=== PATIENT | male | born 1980 | race Caucasian/White ===

== ENCOUNTER 2017-03-28 05:57 | Day surgery (SDC) | payer BC ==
[2017-03-28] MEDS ORDERED: Famotidine IV* 10 MG/ML 2 ML (20 mg) IV ONE (06:00)
[2017-03-28] MEDS ORDERED: Buffered Lidocaine 0.9% SYRIN* 5 ML/SYR SYRINGE INTRADERM ONE (06:00)
[2017-03-28] MEDS ORDERED: Famotidine IV* 10 MG/ML 2 ML (20 mg) ONE (06:07)
[2017-03-28] MEDS ORDERED: Buffered Lidocaine 0.9% SYRIN* 5 ML/SYR SYRINGE ONE (06:08)
[2017-03-28] MEDS ORDERED: ceFAZolin 2 GM PREMIX (*) 2 GM/50 ML BAG IVPB ONE (06:08)
[2017-03-28] MEDS ORDERED: Clindamycin 900 MG IVPREMIX(* 900 MG/50 ML SDV IV ONE (07:02)
[2017-03-28] MEDS ORDERED: fentaNYL* 50 MCG/ML 2 ML VIAL (100 MCG VIAL) ONE ×2 (07:26→08:17)
[2017-03-28] MEDS ORDERED: Midazolam* 1 MG/ML 2 ML VIAL (2 MG) ONE (07:26)
[2017-03-28] MEDS ORDERED: Bupivacaine 0.5% SDV PF* 30 ML VIAL ONE (07:46)
[2017-03-28] MEDS ORDERED: Lidocaine 1% MPF wEPI 200,000* 30 ML SDV ONE (07:46)
[2017-03-28] MEDS ORDERED: Propofol* 10 MG/ML 20 ML BTL IV PUSH ONE ×2 (07:48→09:41)
[2017-03-28] MEDS ORDERED: Dexamethasone IV* 4 MG/ML 1 ML (4 MG) ONE (07:48)
[2017-03-28] MEDS ORDERED: Ondansetron INJ* 2 MG/ML VIAL ONE (07:48)
[2017-03-28] MEDS ORDERED: Ketorolac INJ* 30 MG/ML 1 ML VIAL ONE (07:48)
[2017-03-28] MEDS ORDERED: DiMENhydriNATE IV* 50 MG/ML VIAL ONE (07:48)
[2017-03-28] MEDS ORDERED: Succinylcholine* 20 MG/ML 10 ML VIAL ONE (07:48)
[2017-03-28] MEDS ORDERED: Lidocaine 2% PF * 5 ML VIAL ONE (07:49)
[2017-03-28] MEDS ORDERED: EPINEPHRINE 1 MG/ML 1 ML VIAL ONE (07:57)
[2017-03-28] MEDS ORDERED: DiMENhydriNATE IV* 50 MG/ML VIAL IV PUSH PRN (08:00)
[2017-03-28] MEDS ORDERED: HYDROmorphone INJ* 1 MG/ML CARPUJECT SYRINGE ONE (09:08)
[2017-03-28] MEDS ORDERED: oxyCODONE/Acetamin 5/325 MG* TAB ONE (09:08)
[2017-03-28] MEDS: HYDROmorphone INJ* 1 MG/ML CARPUJECT SYRINGE IV PRN ×3 (09:09→09:22)
[2017-03-28] MEDS: oxyCODONE/Acetamin 5/325 MG* TAB PO PRN ×2 (09:10→09:11)
[2017-03-28 10:35] VITALS: BP 147/92
--- NOTE | 2017-03-28 16:21 | OP ---
DATE OF OPERATION: 03/28/17 [facility] DATE OF : 78 ATTENDING SURGEON: Pop Fowler MD. RESEARCH PHYSICIST: KINGA Medrano. ANESTHESIOLOGIST: Veronica Mon MD ANESTHESIA: General. PRE-OP DIAGNOSIS: Loose bodies in right elbow. POST-OP DIAGNOSIS: Loose bodies in right elbow. OPERATIVE PROCEDURE: 1. Right elbow arthroscopy. 2. Removable of loose bodies. ESTIMATED BLOOD LOSS: Negligible. COMPLICATIONS: None. SUMMARY: Mr. Ashford is a 36-year-old male who has been having troubles with his right elbow for many years now. He does not remember any particular injury , but notes that he has difficulty with locking out, bending up, and occasionally the elbow would get stuck with the elbow being quite painful. X- rays and CAT scan confirmed very specific loose bodies, but no donor site. I discussed with him that an elbow arthroscopy to remove the loose bodies and doing a microfracture technique had come from should work well to decrease his pain and improve his function. Risks of surgery such as neurovascular injury, scar formation, stiffness, and additional loose bodies were discussed and he had wished to proceed. DESCRIPTION OF PROCEDURE: The patient was brought to the OR and an LMA was placed. He was then rolled into a left lateral decubitus position. Axillary roll was placed and reardon bag was inflated. Right elbow area was prepped and then draped. Portal sites were preinjected using 0.5% Marcaine mixed with 1% lidocaine with epinephrine. Standard anterolateral portal was made first just above the radiocapitellar joint. Skin was just incised and joint was then filled with approximately 15 cc of normal saline. Blunt trocar with the sheath was then popped into the shoulder joint and camera was introduced into the sheath. Elbow was allowed to insufflate and very specific loose bodies were seen. Pictures were taken. Needle localization was used for the anteromedial portal, which was 2 cm distal and 2 cm anterior to the medial epicondyle. Once needle localization was good, skin incision was made using a #15 blade and straight snap was used to come and make a pathway for the probe. Probe was introduced and used to confirm the loose pieces. Shaver was initially used to stir up the pieces a bit and take down some of the synovium. Grasper was then used and multiple pieces were removed. Once I thought I had all the pieces, elbow was pumped to swirl up any additional pieces and two additional pieces were seen. Scope was switched to the medial portal and radiocapitellar joint was nicely visualized. No defects were seen. Additional loose body was removed and coming back to the lateral portal, elbow was pumped again and one last piece was seen, but then it was seen washing out where I had the medial lateral portal. Additional 15 minutes was spent fishing for this, but that piece never came out. It came back into the elbow joint. I am unsure if it washed out totally or was just lost in the soft tissues. I was sure though that there did not appear to be any additional loose bodies within the elbow joint and all instrumentation was removed. Portal sites were closed using 3-0 nylon sutures. Sterile dressing and a posterior mold splint were applied. The patient had the LMA removed in the OR and was stable on transfer to the recovery room. DISPOSITION/DISCHARGE SUMMARY: Mr. Ashford is a 36-year-old male who just underwent a right elbow arthroscopy. He tolerated the procedure well with no complications. He is here in the recovery room. Once we extubate more from his general anesthesia, can tolerate p.o., has his pain well controlled, discharged home. Prescription for [place] was e-scribed in. He has instructions to keep his dressings clean, dry, and intact for the next 3 days, but after that , may take this dressing down, cover sutures with bandage. He may shower, wash and get it wet, but should not soak it. I would like to see him in the office in approximately 10 days, remove his sutures and make sure he is doing well. If there are any problems or anything odd should occur, there are instructions to give the office a call. [id number]/[facility] #: [id number] [place]
== END 2017-03-28 10:37 | disposition home or self-care (01) ==
LOC: OR 05:57
PROVIDERS: ATTEND Orthopaedic Surgery
DX: M24.021 Loose body in right elbow (principal); G47.33 Obstructive sleep apnea (adult) (pediatric); Z88.1 Allergy status to other antibiotic agents; Z87.891 Personal history of nicotine dependence
CPT/HCPCS: A9270-GY; J0330; J0690; J1100; J1170; J1240; J1885; J2001; J2250; J2405; J2704; J3010

== ENCOUNTER 2020-05-06 23:55 | Inpatient (IN) ==
[2020-05-07 00:47] LABS: ABS Eosinophils 0.2 10^3/ul (0-0.6); ABS Lymphocytes 1.9 10^3/ul (1.0-4.8); ABS Monocytes 0.6 10^3/ul (0-0.8); ABS Neutrophils 6.6 10^3/ul (1.5-7.7); Eosinophil % 2.5 %; Hematocrit 45 % (42-52); Hemoglobin 15.7 g/dL (14.0-18.0); Lymphocyte % 20.2 %; Mean Corpuscular HGB Conc 35 g/dL (31-36); Mean Corpuscular Hemoglobin 31 pg (27-31); Mean Corpuscular Volume 89 fL (80-94); Mean Platelet Volume 8.4 fL (7.4-10.4); Nucleated Red Blood Cells % 0.1; Platelet Count 206 10^3/uL (150-450); Red Blood Count 5.01 10^6 /uL (4.18-5.48); Red Cell Distribution Width 13 % (10-15); White Blood Count 9.3 10^3/uL (3.5-10.8)
[2020-05-07 01:19] LABS: TSH Ultra Thyroid Stim Horm 1.99 mcIU/mL (0.34-5.60)
[2020-05-07 02:19] LABS: Albumin 4.7 g/dL (3.2-5.2); Anion Gap 11 mmol/L (2-11); CO2 Carbon Dioxide 23 mmol/L (22-32); Calcium 10.1 mg/dL (8.6-10.3); Chloride 103 mmol/L (101-111); Potassium 4.3 mmol/L (3.5-5.0); Sodium 137 mmol/L (135-145)
[2020-05-07 02:25] LABS: ALT 25 U/L (7-52); AST 25 U/L (13-39); Acetaminophen < 15 mcg/mL; Albumin/Globulin Ratio 1.6 (1-3); Alcohol, S < 10 mg/dL (<10); Alkaline Phosphatase 88 U/L (34-104); BUN/Creatinine Ratio 13.7 (8-20); Blood Urea Nitrogen 16 mg/dL (6-24); EGFR African American 83.5 (>60); Globulin 2.9 g/dL (2-4); Glucose 103 mg/dL (70-100); Salicylate < 2.50 mg/dL (<30); Total Protein 7.6 g/dL (6.4-8.9)
[2020-05-07] MEDS ORDERED: Al Hydrox/Mg Hydrox/Simet LIQ 30 ML UDC PO PRN (10:38)
[2020-05-07] MEDS: Nicotine GUM 4MG FRUIT FLAVOR PO PRN (14:02)
[2020-05-08] MEDS: Vitamin THERAPEUTIC TAB PO SCH (09:42)
[2020-05-08] MEDS ORDERED: Nicotine Lozenge mini 4 MG LOZNG.MINI MT PRN (11:13)
[2020-05-08] MEDS: Nicotine GUM 4MG FRUIT FLAVOR PO PRN (17:17)
[2020-05-09] MEDS: Vitamin THERAPEUTIC TAB PO SCH (08:36)
[2020-05-09 09:04] VITALS: BP 131/76
[2020-05-09] MEDS: Nicotine GUM 4MG FRUIT FLAVOR PO PRN (09:20)
== END 2020-05-09 11:30 | disposition home or self-care (01) | DRG 755 ==
LOC: ED 23:55 → BSU 05-07 09:41
PROVIDERS: ADMIT Psychiatry & Neurology Psychiatry; ATTEND Psychiatry & Neurology Psychiatry